=== PATIENT | male | born 1995 | race Caucasian/White ===

== ENCOUNTER 2019-06-28 14:16 | Emergency (ER) | payer SELFPAY ==
[~2019-06-28] VITALS: Ht 172.7 cm; Wt 133.8 kg
--- NOTE | 2019-06-28 14:41 | ED General ---
General Chief Complaint: Hip/Pelvic Problems Stated Complaint: TAILBONE PAIN Nursing Triage Note: Pt arrived by private vehicle by himself with chief complaint of tailbone pain that has been going on for several days. Pt is alert, oriented x 4 and ambulatory at arrival. Pt took ibuprofen for pain today around [id number]. Pt walked in holding his hip. Pt stated pain was an 8/10. No injury. Nursing Sepsis Screen: No Definite Risk History of Present Illness Date Seen by Provider: June 28, 2019 Time Seen by Provider: 14:36 Initial Comments 23-year-old male Describes several days of discomfort and then increasing pain at the pilonidal area There has been no fall or injury he has never been diagnosed with a pilonidal cyst or abscess in the past Per his description He may have had some mild flareups in the past versus possibly fungal infection in the buttock folds Allergies and Home Medications Allergies Coded Allergies: No Known Drug Allergies (Unverified , 06/28/19) Patient Home Medication List Home Medication List Reviewed: Yes Review of Systems Review of Systems Constitutional: no symptoms reported; No fever EENTM: no symptoms reported Respiratory: no symptoms reported Cardiovascular: no symptoms reported Gastrointestinal: abdominal pain Genitourinary: no symptoms reported, other (pain in the pilonidal area nothing anterior nothing perianal or perineal) Past Mcbvlia-Wyvlon-Bhetzw Hx Patient Social History Alcohol Use: Occasionally Uses Recreational Drug Use: No Smoking Status: Current Everyday Smoker Type Used: Smokeless Tobacco 2nd Hand Smoke Exposure: Yes Recent Foreign Travel: No Contact w/Someone Who Travel: No Recent Infectious Disease Expo: No Recent Hopitalizations: No Physical Abuse: No Sexual Abuse: No Mistreated: No Fear: No Seasonal Allergies Seasonal Allergies: No Past Medical History Surgeries: No Respiratory: No Cardiac: No Neurological: No Genitourinary: No Gastrointestinal: No Musculoskeletal: No Endocrine: No HEENT: No Cancer: No Psychosocial: No Integumentary: No Blood Disorders: No Physical Exam Vital Signs Vital Signs - First Documented 06/28/19 14:23 Temp 36.0 Pulse 107 Resp 18 B/P (MAP) 159/97 (117) Pulse Ox 96 O2 Delivery Room Air Capillary Refill : Less Than 3 Seconds Height, Weight, BMI Height: '" Weight: lbs. oz. kg; 44.00 BMI Method: General Appearance: Other (mild distress) Eyes: Bilateral Eye PERRL, Bilateral Eye EOMI HEENT: PERRL/EOMI, Pharynx Normal Neck: Non Tender, Supple Respiratory: Lungs Clear Cardiovascular: Regular Rate, Rhythm Gastrointestinal: Normal Bowel Sounds, Non Tender, Soft Rectal: Other (patient has redness and tenderness at the buttock cleft pilonidal area there is a bit of swelling on the right side all very firm there is nothing fluctuant at all) Genital/Rectal: Normal Genital Exam Progress/Results/Core Measures Suspected Sepsis Recent Fever Within 48 Hours: No Infection Criteria Present: None New/Unexplained Altered Menta: No Sepsis Screen: No Definite Risk SIRS Temperature: Pulse: 107 Respiratory Rate: 18 Blood Pressure 159 /97 Mean: 117 Results/Orders Vital Signs/I&O 06/28/19 14:23 Temp 36.0 Pulse 107 Resp 18 B/P (MAP) 159/97 (117) Pulse Ox 96 O2 Delivery Room Air Capillary Refill : Less Than 3 Seconds Blood Pressure Mean: 117 Progress Note : Progress Note Feel patient has a pilonidal cyst that has become infected on careful exam I'm not finding any fluctuance at all there is an area of localized swelling and redness on the right I'm hesitant to incise this as I think it's just going to bleed I talked with him at some length we could get a creatinine and do a CT contrast and see if they see anything that looks like an abscess he preferred simple empiric treatment with antibiotic and pain medicine at this time Departure Impression Primary Impression: Infected pilonidal cyst Disposition: 01 HOME, SELF-CARE Condition: Unchanged Departure-Patient Inst. Decision time for Depature: 14:42 Referrals: NO,LOCAL PHYSICIAN (PCP/Family) Primary Care Physician Patient Instructions: Pilonidal Cyst (DC) Scripts Clindamycin HCl (Clindamycin HCl) 300 Mg Capsule 300 MG PO QID for 7 Days, #30 CAP Prov: JAREN DAVIS MD 06/28/19 Oxycodone HCl/Acetaminophen (Percocet 5-325 mg Tablet) 1 Each Tablet 1 TAB PO Q4H for PAIN-MODERATE MDD 6 TABS for 7 Days, #20 TAB Prov: JAREN DAVIS MD 06/28/19 JAREN DAVIS MD June 28, 2019 14:41
[2019-06-28] MEDS ORDERED: oxyCODONE/APAP 5/325MG (PERCOCET 5) TABLET ONE (14:44)
[2019-06-28] MEDS ORDERED: OXYC1TAB87 PO (14:45)
[2019-06-28] MEDS ORDERED: CLIN300C11 PO (14:45)
[2019-06-28 14:57] VITALS: BP 142/82
[2019-06-28] MEDS ORDERED: CLINDAMYCIN 150 MG (CLEOCIN) CAP PO ONE (15:00)
[2019-06-28] MEDS ORDERED: oxyCODONE/APAP 10/325MG (PERCOCET 10) TABLET PO ONE (15:00)
== END 2019-06-28 14:59 | disposition home or self-care (01) ==
LOC: EDUNIT# 14:16 → ER FS 14:21
DX: L05.91 Pilonidal cyst without abscess (principal); F17.290 Nicotine dependence, other tobacco product, uncomplicated
CPT/HCPCS: 99283

== ENCOUNTER 2020-09-11 21:22 | Emergency (ER) | payer SELFPAY ==
[~2020-09-11] VITALS: Ht 172.7 cm; Wt 137.0 kg
[~2020-09-11 21:22] MED LIST: CLIN300C12 PO; OXYC1TAB87 PO
[2020-09-11 21:30] VITALS: BP 173/107
[2020-09-11] MEDS ORDERED: AMOXICILLIN 500 MG (POLYMOX) CAP PO STA (21:40)
[2020-09-11] MEDS ORDERED: PRD20T PO (21:45)
[2020-09-11] MEDS ORDERED: AMOX500C2 PO (21:45)
[2020-09-11] MEDS ORDERED: KETOROLAC 60 MG/2 ML VIAL IM ONE (21:45)
--- NOTE | 2020-09-11 21:45 | ED EENT ---
History of Present Illness General Chief Complaint: Ear Problems Stated Complaint: R EAR PAIN Nursing Triage Note: PT AMBULATE TO TRIAGE WITH C/O RIGHT EAR PAIN STARTING THIS MORNING. PT REPORTS TAKING IBUPROFEN WITH SOME RELIEF. Source: patient Exam Limitations: no limitations (IRAM VIZCARRA APRN) History of Present Illness Date Seen by Provider: Sep 11, 2020 Time Seen by Provider: 21:41 Initial Comments To ER with right ear pain onset this morning. He is not sure if it is temporomandibular joint on the right or his ear. Last dose of analgesic was ibuprofen at noon. No rhinorrhea no fever no chills no sore throat no cough no weakness Timing/Duration: abrupt Severity: moderate (IRAM VIZCARRA APRN) Allergies and Home Medications Allergies Coded Allergies: No Known Drug Allergies (Unverified , 06/28/19) Home Medications Amoxicillin 500 Mg Capsule, 500 MG PO TID Prescribed by: IRAM VIZCARRA on 09/11/202144 Clindamycin HCl 300 Mg Capsule, 300 MG PO QID Prescribed by: JAREN DAVIS on 06/28/19 1445 Oxycodone HCl/Acetaminophen 1 Each Tablet, 1 TAB PO Q4H Prescribed by: JAREN DAVIS on 06/28/19 1445 Prednisone 20 Mg Tab, 40 MG PO DAILY Prescribed by: IRAM VIZCARRA on 09/11/202144 Patient Home Medication List Home Medication List Reviewed: Yes (IRAM VIZCARRA APRN) Review of Systems Review of Systems Constitutional: see HPI Eyes: No Symptoms Reported Ears: See HPI, Pain Nose: no symptoms reported Mouth: no symptoms reported Throat: no symptoms reported Respiratory: no symptoms reported Cardiovascular: no symptoms reported Musculoskeletal: no symptoms reported Skin: no symptoms reported (IRAM VIZCARRA APRN) Past Jxvnumk-Zvwgdx-Twveeu Hx Patient Social History Tobacco Use?: No Smoking Status: Never a Smoker Smokeless Tobacco Frequency: Current Everyday User Substance use?: No Alcohol Use?: Yes Alcohol Frequency: Daily Pt feels they are or have been: No (IRAM VIZCARRA APRN) Seasonal Allergies Seasonal Allergies: No (IRAM VIZCARRA APRN) Past Medical History Surgeries: No Respiratory: No Cardiac: No Neurological: No Genitourinary: No Gastrointestinal: No Musculoskeletal: No Endocrine: No HEENT: No Cancer: No Psychosocial: No Integumentary: No Blood Disorders: No (IRAM VIZCARRA APRN) Physical Exam Vital Signs Vital Signs - First Documented 09/11/20 21:30 Temp 37.1 Pulse 81 Resp 16 B/P (MAP) 173/107 (129) O2 Delivery Room Air (JAD ROSSI MD) Height, Weight, BMI Height: '" Weight: lbs. oz. kg; 45.00 BMI Method: General Appearance: WD/WN, no apparent distress Eyes: bilateral eye normal inspection, bilateral eye PERRL, bilateral eye EOMI Ears: right ear TM bulging (No erythema but there is a serous otitis on the right.); bilateral ear auricle normal, bilateral ear canal normal Neck: non-tender, full range of motion Cardiovascular: regular rate, rhythm, no murmur Respiratory: no respiratory distress, no accessory muscle use Gastrointestinal: normal bowel sounds, non tender Neurologic/Psychiatric: alert, normal mood/affect, oriented x 3 Skin: normal color, warm/dry (IRAM VIZCARRA APRN) Progress/Results/Core Measures Results/Orders Medications Given in ED Current Medications Medications Dose Ordered Sig/Rossana Route Start Time Stop Time Status Last Admin Dose Admin Ketorolac Tromethamine 60 mg ONCE ONCE IM 09/11/20 21:45 09/11/20 21:46 DC 09/11/20 21:49 60 MG (JAD ROSSI MD) Vital Signs/I&O 09/11/20 21:30 Temp 37.1 Pulse 81 Resp 16 B/P (MAP) 173/107 (129) O2 Delivery Room Air (JAD ROSSI MD) Blood Pressure Mean: 129 Departure Impression Primary Impression: Serous otitis media Disposition: 01 HOME, SELF-CARE Condition: Stable Departure-Patient Inst. Decision time for Depature: 21:43 (IRAM VIZCARRA APRN) Referrals: NO,LOCAL PHYSICIAN (PCP/Family) Primary Care Physician Patient Instructions: Serous Otitis Media (DC) Add. Discharge Instructions: All discharge instructions reviewed with patient and/or family. Voiced understanding. Scripts Prednisone (Prednisone) 20 Mg Tab 40 MG PO DAILY, #8 TAB Prov: IRAM VIZCARRA APRN 09/11/20 Amoxicillin (Amoxicillin) 500 Mg Capsule 500 MG PO TID, #21 CAP 0 Refills Prov: IRAM VIZCARRA APRN 09/11/20 ATTENDING PHYSICIAN NOTE: I was physically present as attending physician in the emergency department during the care of this patient, but I was not directly involved in the decision making or delivery of care for this patient. (JAD ROSSI MD) IRAM VIZCARRA APRN Sep 11, 2020 21:45 JAD ROSSI MD Sep 12, 2020 06:52
== END 2020-09-11 21:54 | disposition home or self-care (01) ==
LOC: EDUNIT# 21:22 → ER 21:23
DX: H65.91 Unspecified nonsuppurative otitis media, right ear (principal); F17.290 Nicotine dependence, other tobacco product, uncomplicated
CPT/HCPCS: 99282

== ENCOUNTER 2020-10-09 18:29 | Emergency (ER) | payer SELFPAY ==
[~2020-10-09] VITALS: Ht 172.7 cm; Wt 137.0 kg
[~2020-10-09 18:29] MED LIST changes: +AMOX500C2 PO; +PRD20T PO
[2020-10-09 18:35] VITALS: BP 172/95
[2020-10-09] MEDS ORDERED: DOXY100T2 PO (18:44)
--- NOTE | 2020-10-09 18:44 | ED Upper Extremity ---
General Chief Complaint: Bite-Animal/Human/Insect Stated Complaint: L HAND INDEX FINGER POSS SPIDER BITE Nursing Triage Note: PT AMBULATE TO TRIAGE WITH C/O SPIDER BITE TO LEFT INDEX FINGER. PT REPORTS C/O STARTED X3 DAYS AGO. Source: patient Exam Limitations: no limitations History of Present Illness Date Seen by Provider: Oct 09, 2020 Time Seen by Provider: 18:41 Initial Comments To ER with concern of a spider bite to the left pointer finger. This wound was present for 3 days. He did not see a spider bite him but he suspects that may be what it is. He states that it started out like a pimple and has gotten progressively worse despite using triple antibiotic ointment at home. No fevers or chills. No known injury. Onset: last week Severity: moderate Pain/Injury Location: left 2nd finger Method of Injury: unknown Modifying Factors: Worse With Movement Allergies and Home Medications Allergies Coded Allergies: No Known Drug Allergies (Unverified , 06/28/19) Home Medications Amoxicillin 500 Mg Capsule, 500 MG PO TID Prescribed by: IRAM VIZCARRA on 09/11/202144 Clindamycin HCl 300 Mg Capsule, 300 MG PO QID Prescribed by: JAREN DAVIS on 06/28/19 1445 Doxycycline Hyclate 100 Mg Tablet, 100 MG PO BID Prescribed by: IRAM VIZCARRA on 10/09/20 1844 Oxycodone HCl/Acetaminophen 1 Each Tablet, 1 TAB PO Q4H Prescribed by: JAREN DAVIS on 06/28/19 1445 Prednisone 20 Mg Tab, 40 MG PO DAILY Prescribed by: IRAM VIZCARRA on 09/11/202144 Patient Home Medication List Home Medication List Reviewed: Yes Review of Systems Constitutional: see HPI EENTM: see HPI Respiratory: no symptoms reported Cardiovascular: no symptoms reported Genitourinary: no symptoms reported Musculoskeletal: no symptoms reported Skin: see HPI Psychiatric/Neurological: No Symptoms Reported Past Gjlvwcy-Nnrfec-Lizuel Hx Seasonal Allergies Seasonal Allergies: No Past Medical History Surgeries: No Respiratory: No Cardiac: No Neurological: No Genitourinary: No Gastrointestinal: No Musculoskeletal: No Endocrine: No HEENT: No Cancer: No Psychosocial: No Integumentary: No Blood Disorders: No Physical Exam Vital Signs Vital Signs - First Documented 10/09/20 18:35 Temp 37.0 Pulse 95 Resp 18 B/P (MAP) 172/95 (120) O2 Delivery Room Air Capillary Refill : Less Than 3 Seconds Height, Weight, BMI Height: '" Weight: lbs. oz. kg; 45.00 BMI Method: General Appearance: WD/WN, no apparent distress HEENT: PERRL/EOMI, normal ENT inspection Respiratory: no respiratory distress, no accessory muscle use Shoulder: normal inspection, non-tender Elbow/Forearm: normal inspection, non-tender Wrist: Yes normal inspection, Yes non-tender Hand: Left, limited ROM (There is swelling with a central pustule to the radial side of the proximal phalanx left pointer finger. There is some fluctuance to this. The cellulitis changes are confined to the proximal phalanx. Nothing distal to this and no cellulitis changes proximal to the MTP joint though there is some lymphangitis that extends up to the wrist.) Neurologic/Psychiatric: alert, normal mood/affect, oriented x 3 Skin: normal color, warm/dry Procedures/Interventions I&D : Blade Size: 11 Progress The area with a chlorhexidine swab then anesthetized locally with 0.5 mL of buffered 1% lidocaine without epinephrine. Incision made with 11 blade scalpel small amount of purulent material expressed. Culture collected and sent to lab. Covered with gauze. Progress/Results/Core Measures Results/Orders My Orders Orders - IRAM VIZCARRA APRN Wound Culture (10/09/20 18:39) Rx-Hydrocodone/Apap 5-325 Mg (Rx-Vicodin (10/09/20 18:45) Doxycycline Hyclate Tablet (Vibramycin T (10/09/20 18:45) Ceftriaxone (Rocephin) (10/09/20 18:45) Lidocaine 1% Inj 20 Ml (Xylocaine 1% Inj (10/09/20 18:45) Medications Given in ED Current Medications Medications Dose Ordered Sig/Rossana Route Start Time Stop Time Status Last Admin Dose Admin Ceftriaxone Sodium 1,000 mg ONCE ONCE IM 10/09/20 18:45 10/09/20 18:46 DC 10/09/20 18:48 1,000 MG Lidocaine HCl 2.1 ml ONCE ONCE INJ 10/09/20 18:45 10/09/20 18:46 DC 10/09/20 18:49 2.1 ML Vital Signs/I&O 10/09/20 18:35 Temp 37.0 Pulse 95 Resp 18 B/P (MAP) 172/95 (120) O2 Delivery Room Air Blood Pressure Mean: 120 Departure Impression Primary Impression: Abscess of finger of left hand Disposition: 01 HOME, SELF-CARE Condition: Stable Departure-Patient Inst. Decision time for Depature: 18:43 Referrals: NO,LOCAL PHYSICIAN (PCP/Family) Primary Care Physician Patient Instructions: Abscess Incision and Drainage (DC) Add. Discharge Instructions: 1. Warm compresses to the area. Antibiotics as directed All discharge instructions reviewed with patient and/or family. Voiced understanding. Scripts Doxycycline Hyclate (Doxycycline Hyclate) 100 Mg Tablet 100 MG PO BID, #14 TAB 0 Refills Prov: IRAM VIZCARRA APRN 10/09/20 IRAM VIZCARRA APRN Oct 09, 2020 18:44
[2020-10-09] MEDS ORDERED: cefTRIAXone 1,000 MG VIAL IM ONE (18:45)
[2020-10-09] MEDS ORDERED: DOXYCYCLINE 100 MG (VIBRAMYCIN) TABLET PO SCH (18:45)
[2020-10-09] MEDS ORDERED: LIDOCAINE 1% INJ 20 ML 20 ML VIAL INJ ONE (18:45)
== END 2020-10-09 19:05 | disposition home or self-care (01) ==
LOC: EDUNIT# 18:29 → ER 18:31
DX: L02.512 Cutaneous abscess of left hand (principal)
CPT/HCPCS: 87070; 87077; 87186; 87205; 99284